=== PATIENT | female | born 1960 | race Two or more races ===

== ENCOUNTER 2017-03-24 12:01 | Emergency (ER) | payer MEDICAID ==
[~2017-03-24] VITALS: Ht 157.5 cm; Wt 68.0 kg
[~2017-03-24 12:01] MED LIST: ACET-2178 PO; LEVO750T21 PO; OMEP20CA10
[2017-03-24] MEDS ORDERED: KETOROLAC 60MG/2ML VIAL IM ONE (13:00)
[2017-03-24 13:08] VITALS: BP 135/78
== END 2017-03-24 14:30 | disposition home or self-care (01) ==
LOC: ER 12:56
DX: M25.512 Pain in left shoulder (principal); M75.32 Calcific tendinitis of left shoulder; E78.00 Pure hypercholesterolemia, unspecified; Z98.890 Other specified postprocedural states
CPT/HCPCS: 73030; 96372; 99284; J1885; Z7610; A4565

== ENCOUNTER 2017-03-29 13:34 | Emergency (ER) | payer MEDICAID ==
[~2017-03-29] VITALS: Ht 157.5 cm; Wt 72.0 kg
[2017-03-29] MEDS ORDERED: KETOROLAC 60MG/2ML VIAL IM ONE (14:15)
[2017-03-29 16:20] VITALS: BP 127/86
== END 2017-03-29 17:00 | disposition home or self-care (01) ==
LOC: ER 14:20
DX: M79.602 Pain in left arm (principal); Z98.890 Other specified postprocedural states
CPT/HCPCS: 73030; 96372; 99284; J1885

== ENCOUNTER 2017-04-22 21:27 | Emergency (ER) | payer MEDICAID ==
[~2017-04-22] VITALS: Ht 152.4 cm; Wt 68.0 kg
[2017-04-23 00:22] LABS: BASOPHILS % 0.7 % (0.0-2.0); EOSINOPHILS % 2.2 % (0.0-5.0); HEMATOCRIT. 37.5 % (36.0-48.0); HEMOGLOBIN. 12.9 g/dL (12.0-16.0); LYMPHOCYTES % 38.2 % (20.0-50.0); MEAN CORPUSCULAR HEMOGLOBIN 31.9 pg (28.0-32.0); MEAN CORPUSCULAR VOLUME 92.7 fL (81.0-99.0); MEAN PLATELET VOLUME 9.6 fl (7.4-10.4); NEUTROPHILS % 49.9 % (40.0-76.0); PLATELET 173 x1000/uL (130-400); RED BLOOD CELL COUNT 4.04 mill/uL (4.2-5.4)
[2017-04-23 00:27] LABS: CHLORIDE 100 mEq/L (98-107)
[2017-04-23 00:35] LABS: CLARITY URINE CLEAR (CLEAR); COLOR URINE YELLOW (YELLOW); GLUCOSE URINE NEGATIVE (NEGATIVE); KETONES URINE NEGATIVE (NEGATIVE); LEUKOCYTE ESTERASE URINE TRACE (NEGATIVE); NITRITE URINE NEGATIVE (NEGATIVE); OCCULT BLOOD URINE NEGATIVE (NEGATIVE); PROTEIN URINE NEGATIVE (NEGATIVE); SPECIFIC GRAVITY URINE 1.012 (1.005-1.030); UROBILINOGEN URINE 0.2 E.U./dL (0.2-1.0)
[2017-04-23 00:35] LABS: CARBON DIOXIDE 28 mEq/L (21-32)
[2017-04-23 01:10] VITALS: BP 132/75
== END 2017-04-23 01:50 | disposition home or self-care (01) ==
LOC: ER 21:27
DX: N39.0 Urinary tract infection, site not specified (principal)
CPT/HCPCS: 36415; 80053; 81001; 85025; 99284

== ENCOUNTER 2017-11-18 10:53 | Emergency (ER) | payer MEDICAID ==
[~2017-11-18] VITALS: Ht 154.9 cm; Wt 73.0 kg
[2017-11-18 11:15] VITALS: BP 143/59
== END 2017-11-18 12:00 | disposition home or self-care (01) ==
LOC: ER 12:00
DX: S50.861A Insect bite (nonvenomous) of right forearm, initial encounter (principal); W57.XXXA Bitten or stung by nonvenomous insect and other nonvenomous arthropods, initial encounter; Y93.H2 Activity, gardening and landscaping; Y92.017 Garden or yard in single-family (private) house as the place of occurrence of the external cause; R03.0 Elevated blood-pressure reading, without diagnosis of hypertension; Z79.899 Other long term (current) drug therapy
CPT/HCPCS: 99283

== ENCOUNTER 2019-02-27 20:58 | Emergency (ER) | payer SELFPAY ==
[~2019-02-27] VITALS: Ht 157.5 cm; Wt 74.1 kg
[~2019-02-27 20:58] MED LIST changes: -OMEP20CA10; +OMEP20CA5
[2019-02-27] MEDS ORDERED: FAMOTIDINE 20MG TABLET PO ONE (23:15)
[2019-02-27 23:56] VITALS: BP 131/86
== END 2019-02-27 23:57 | disposition home or self-care (01) ==
LOC: ER 20:58
DX: R07.0 Pain in throat (principal); R05 Cough; R03.0 Elevated blood-pressure reading, without diagnosis of hypertension
CPT/HCPCS: 70360; 71045; 99283

== ENCOUNTER 2019-05-04 08:59 | Emergency (ER) | payer SELFPAY ==
[~2019-05-04] VITALS: Ht 160 cm; Wt 78.0 kg
[2019-05-04 11:10] VITALS: BP 154/77
== END 2019-05-04 11:12 | disposition home or self-care (01) ==
LOC: ER 08:59
DX: B02.29 Other postherpetic nervous system involvement (principal); M79.10 Myalgia, unspecified site; Z98.890 Other specified postprocedural states; Z79.899 Other long term (current) drug therapy; Z86.19 Personal history of other infectious and parasitic diseases
CPT/HCPCS: 99283

== ENCOUNTER 2019-09-12 18:59 | Inpatient (IN) | payer MEDICAID ==
[~2019-09-12] VITALS: Ht 154.9 cm; Wt 73.6 kg
[~2019-09-12 18:59] MED LIST changes: -ACET-2178 PO; +TOPUD PO
[2019-09-12] MEDS ORDERED: ASPIRIN 325MG EC TABLET PO ONE (19:45)
[2019-09-12 20:28] LABS: BASOPHILS % 1.1 % (0.0-2.0); EOSINOPHILS % 2.8 % (0.0-5.0); HEMATOCRIT. 39.7 % (36.0-48.0); HEMOGLOBIN. 13.6 g/dL (12.0-16.0); LYMPHOCYTES % 37.5 % (20.0-50.0); MEAN CORPUSCULAR HEMOGLOBIN 32.4 pg (28.0-32.0); MEAN CORPUSCULAR VOLUME 94.5 fL (81.0-99.0); MEAN PLATELET VOLUME 9.3 fl (7.4-10.4); MONOCYTES % 8.2 % (2.0-8.0); NEUTROPHILS % 50.4 % (40.0-76.0); PLATELET 209 x1000/uL (130-400); RED BLOOD CELL COUNT 4.19 mill/uL (4.2-5.4); RED CELL DISTRIBUTION WIDTH 13.4 % (11.6-14.6)
[2019-09-12 20:33] LABS: CHLORIDE 106 mEq/L (98-107)
[2019-09-12] MEDS ORDERED: ACETAMINOPHEN 325MG TABLET PO PRN (22:15)
[2019-09-12] MEDS ORDERED: IPRATROPIUM/ALBUTEROL 0.5-3(2.5)MG/3ML NEB NEB PRN (22:15)
[2019-09-12] MEDS ORDERED: GUAIFENESIN 200MG/10ML SUGAR FREE UDC PO PRN (22:15)
[2019-09-12] MEDS ORDERED: DOCUSATE SODIUM 100MG CAPSULE PO PRN (22:15)
[2019-09-12] MEDS ORDERED: LORAZEPAM 0.5MG TABLET PO PRN (22:15)
[2019-09-12] MEDS ORDERED: KETOROLAC 15MG/ML VIAL IV PRN (22:15)
[2019-09-12] MEDS ORDERED: MAGNESIUM/ALUMINUM HYDROXIDE/SIMETHICONE 30ML UDC PO PRN (22:15)
[2019-09-12] MEDS ORDERED: NITROGLYCERIN 0.4MG TABLET SL SL PRN (22:15)
[2019-09-12] MEDS ORDERED: ZOLPIDEM TARTRATE 5MG TABLET PO PRN (22:15)
[2019-09-12] MEDS ORDERED: CLONIDINE 0.1MG TABLET PO PRN (22:15)
[2019-09-12] MEDS ORDERED: ONDANSETRON HCL 4MG/2ML INJ IV PRN (22:15)
[2019-09-13 06:34] LABS: CREATINE KINASE 101 IU/L (26-192); CREATINE KINASE MB FRACTION 1.2 ng/mL (0.5-3.6)
[2019-09-13] MEDS ORDERED: FAMOTIDINE 20MG TABLET PO SCH (09:00)
[2019-09-13] MEDS ORDERED: ASPIRIN 325MG EC TABLET PO SCH (09:00)
[2019-09-13] MEDS ORDERED: METOPROLOL TARTRATE 25MG TABLET PO SCH (09:00)
[2019-09-13 09:40] VITALS: BP 130/65
[2019-09-13] MEDS ORDERED: ENOXAPARIN 40MG/0.4ML SYR SUBCUT SCH (10:00)
[2019-09-13 11:15] VITALS: BP 130/65
[2019-09-13 12:00] VITALS: BP 137/62
[2019-09-13 13:36] VITALS: BP 137/62
== END 2019-09-13 14:58 | disposition home or self-care (01) | DRG 145 ==
LOC: ER 18:59 → 6WST 21:41 → EDBEDREQTM 21:44 → EDBEDREQ 21:44 → ENRESERV 09-13 07:20
PROVIDERS: ADMIT Internal Medicine; ATTEND Internal Medicine
DX: R07.81 Pleurodynia (principal); F41.9 Anxiety disorder, unspecified; G47.00 Insomnia, unspecified; K30 Functional dyspepsia; K59.00 Constipation, unspecified; Z79.899 Other long term (current) drug therapy
CPT/HCPCS: 36415; 71045; 80061; 82550; 82553; 83036; 83880; 84484; 85379; 93005; 93970; 99285; J1650; J7040

== ENCOUNTER 2022-01-05 13:46 | Emergency (ER) | payer MEDICAID ==
[~2022-01-05] VITALS: Ht 152.4 cm; Wt 85.0 kg
[~2022-01-05 13:46] MED LIST changes: -LEVO750T21 PO; -OMEP20CA5
[2022-01-05] MEDS ORDERED: CYCLOBENZAPRINE 10MG TABLET PO ONE (14:45)
[2022-01-05] MEDS ORDERED: KETOROLAC 60MG/2ML VIAL IM ONE (14:45)
[2022-01-05] MEDS ORDERED: IBUP-2029 MT (16:47)
[2022-01-05] MEDS ORDERED: CYCL5TAB MT (16:47)
[2022-01-05 16:58] VITALS: BP 148/73
== END 2022-01-05 16:59 | disposition home or self-care (01) ==
LOC: ER 14:15
DX: M25.512 Pain in left shoulder (principal); G89.29 Other chronic pain; I49.8 Other specified cardiac arrhythmias; Z86.16 Personal history of COVID-19; Z98.890 Other specified postprocedural states
CPT/HCPCS: 73030; 93005; 96372; 99283; J1885

== ENCOUNTER 2022-01-20 21:22 | Emergency (ER) | payer MEDICAID ==
[~2022-01-20] VITALS: Ht 149.9 cm; Wt 73.0 kg
[~2022-01-20 21:22] MED LIST changes: +CYCL5TAB MT; +IBUP-2029 MT
[2022-01-20 23:54] LABS: CLARITY URINE CLEAR (CLEAR); COLOR URINE YELLOW (YELLOW); KETONES URINE NEGATIVE (NEGATIVE); LEUKOCYTE ESTERASE URINE NEGATIVE (NEGATIVE); NITRITE URINE NEGATIVE (NEGATIVE); OCCULT BLOOD URINE NEGATIVE (NEGATIVE); PROTEIN URINE NEGATIVE (NEGATIVE); SPECIFIC GRAVITY URINE 1.004 (1.005-1.030); UROBILINOGEN URINE 0.2 E.U./dL (0.2-1.0)
[2022-01-21] MEDS ORDERED: KETO15CR2 TP (00:10)
[2022-01-21] MEDS ORDERED: FLUC150T5 PO (00:10)
[2022-01-21] MEDS ORDERED: SULF1TAB48 PO (00:10)
[2022-01-21 01:45] VITALS: BP 121/79
== END 2022-01-21 01:47 | disposition home or self-care (01) ==
LOC: ER 21:22
DX: L30.4 Erythema intertrigo (principal); Z98.890 Other specified postprocedural states
CPT/HCPCS: 81003; 82962; 99283

== ENCOUNTER 2022-02-26 20:22 | Emergency (ER) | payer MEDICAID, OTHER ==
[~2022-02-26] VITALS: Ht 149.9 cm; Wt 73.8 kg
[~2022-02-26 20:22] MED LIST changes: +FLUC150T46 PO; +KETO15CR2 TP; +SULF1TAB48 PO
[2022-02-26] MEDS ORDERED: FAMOTIDINE 20MG/2ML VIAL IV STA (20:55)
[2022-02-26] MEDS ORDERED: DIPHENHYDRAMINE 50MG/ML VIAL IV ONE (21:00)
[2022-02-26] MEDS ORDERED: METHYLPREDNISOLONE SOD SUCC 125 MG/2 ML VIAL IV ONE (21:00)
[2022-02-26] MEDS ORDERED: SODIUM CHLORIDE 0.9% 1,000 ML IV ONE (21:00)
[2022-02-27] MEDS ORDERED: FAMO-135 MT (00:26)
[2022-02-27] MEDS ORDERED: P50 MT (00:26)
[2022-02-27] MEDS ORDERED: EPIN0.3P3 IM (00:26)
[2022-02-27] MEDS ORDERED: DIPH25CA83 MT (00:26)
[2022-02-27 00:30] VITALS: BP 148/80
== END 2022-02-27 00:57 | disposition home or self-care (01) ==
LOC: ER 20:22
DX: T78.40XA Allergy, unspecified, initial encounter (principal); X58.XXXA Exposure to other specified factors, initial encounter; R03.0 Elevated blood-pressure reading, without diagnosis of hypertension; Z98.890 Other specified postprocedural states
CPT/HCPCS: 96361; 96374; 96375; 99284; J1200; J2930; J3490; J7030

== ENCOUNTER 2023-04-23 16:15 | Emergency (ER) | payer MEDICAID, OTHER ==
[~2023-04-23] VITALS: Ht 152.4 cm; Wt 77.0 kg
[~2023-04-23 16:15] MED LIST changes: +DIPH25CA83 MT; +EPIN0.3P3 IM; +FAMO-135 MT; +P50 MT
[2023-04-23 16:23] VITALS: BP 116/57; RESP 20; TEMP 98.2; O2SAT 100
[2023-04-23 16:25] VITALS: PULSE 82
[2023-04-23] MEDS ORDERED: DICL100G32 TP (18:31)
[2023-04-23] MEDS ORDERED: NAPR-1129 MT (18:31)
== END 2023-04-23 19:11 | disposition home or self-care (01) ==
LOC: ER 16:15
DX: M25.561 Pain in right knee (principal); J45.909 Unspecified asthma, uncomplicated; Z79.899 Other long term (current) drug therapy
CPT/HCPCS: 73560; 99283